=== PATIENT | male | born 1960 ===

== ENCOUNTER 2021-10-10 06:59 | Inpatient (IN) | payer OTHER ==
[~2021-10-10] VITALS: Ht 177.8 cm; Wt 73.0 kg
[2021-10-10] MEDS ORDERED: VICTOZA 2-0.6 MG/0.1 (07:14)
[2021-10-10] MEDS ORDERED: AMBIEN10 MG PO (07:15)
[2021-10-10] MEDS ORDERED: DIALYVITE 800-1 EACH PO (07:15)
[2021-10-10] MEDS ORDERED: LIPITOR40 M1 (07:15)
[2021-10-10] MEDS ORDERED: TREXALL5 MG (07:16)
[2021-10-10] MEDS ORDERED: PREDNISONE5 M1 PO (07:16)
[2021-10-10] MEDS ORDERED: FARXIGA5 MG PO (07:17)
[2021-10-10] MEDS ORDERED: HUMIRA PEN40 MG/0.8 SQ (07:17)
[2021-10-10] MEDS ORDERED: TOPROL XL25 M1 PO (07:17)
[2021-10-10] MEDS ORDERED: ENALAPRIL M1 MG/1 ML PO (07:18)
[2021-10-10] MEDS ORDERED: VAZALORE81 MG PO (07:18)
[2021-10-10] MEDS ORDERED: JANUMET 50-5001 EACH PO (07:18)
[2021-10-19] MEDS ORDERED: FAMOTIDINE40 MG PO (16:22)
[2021-10-19] MEDS ORDERED: ZOLPIDEM TARTRA10 MG PO (16:22)
[2021-10-19] MEDS ORDERED: CIPRO500 MG PO (16:22)
[2021-10-19] MEDS ORDERED: MELATONIN5 M2 PO (16:22)
[2021-10-19] MEDS ORDERED: TOPROL XL25 M1 PO (16:22)
[2021-10-19] MEDS ORDERED: VITAMIN C500 M1 PO (16:22)
[2021-10-19] MEDS ORDERED: METRONIDAZOLE500 MG PO (16:22)
[2021-10-19] MEDS ORDERED: SIMETHICONE125 M1 PO (16:22)
[2021-10-19] MEDS ORDERED: PREDNISONE 5MG PO (16:22)
[2021-10-19] MEDS ORDERED: INTESTINEX680 M1 PO (16:22)
[2021-10-19] MEDS ORDERED: PANTOPRAZOLE SO40 MG PO (16:22)
[2021-10-19] MEDS ORDERED: HUMALOG100 UNIT/1 SUBCUTANEO (16:22)
[2021-10-19] MEDS ORDERED: Lantus 1000 UNITS/10 SUBCUTANEO (16:22)
[2021-10-19] MEDS ORDERED: ST. JOSEPH ASPI81 M2 PO (16:22)
[2021-10-19] MEDS ORDERED: CARAFATE1 GM PO (16:22)
== END 2021-10-19 17:06 | disposition home or self-care (01) | DRG 391 ==
LOC: ER 06:59 → MEDJ 10-11 01:43
PROVIDERS: ADMIT Internal Medicine; ATTEND Internal Medicine
PROC: 4A12X4Z Monitoring of Cardiac Electrical Activity, External Approach (ICD-10-PCS; principal; 2021-10-11)
DX: K52.89 Other specified noninfective gastroenteritis and colitis (principal); U07.1 COVID-19; N39.0 Urinary tract infection, site not specified; E11.9 Type 2 diabetes mellitus without complications; Z79.4 Long term (current) use of insulin; I10 Essential (primary) hypertension; K21.9 Gastro-esophageal reflux disease without esophagitis; J11.1 Influenza due to unidentified influenza virus with other respiratory manifestations; F41.8 Other specified anxiety disorders; F32.9 Major depressive disorder, single episode, unspecified; M06.8A Other specified rheumatoid arthritis, other specified site